=== PATIENT | female | born 1945 | race Hispanic/Latino ===

== ENCOUNTER 2017-10-30 19:17 | Emergency (ER) | payer OTHER ==
[~2017-10-30] VITALS: Ht 167.6 cm; Wt 93.0 kg
[~2017-10-30 19:17] MED LIST: AFEDITAB CR30 MG PO; COZAAR100 MG PO; DEXILANT60 MG PO; FAMOTIDINE10 MG; FAMOTIDINE20 MG PO; HYDROCHLOROTHIA25 MG PO; HYDROCODON-ACE1 EAC9 PO; KEFLEX500 MG PO; KLOR-CON 1010 MEQ PO; LINZESS PO; LOSARTAN POTASS25 MG PO; LYRICA75 MG PO; NIFEDIPINE ER30 M1 PO; NIFEDIPINE PO; OMEPRAZOLE40 MG PO; RESTORIL15 MG PO; ULTRACET TABLE1 EACH PO; ULTRAM50 MG PO
[2017-10-30] MEDS ORDERED: SODIUM CHLORIDE 0.9% 1000ML 1,000 ML IV SCH (19:45)
[2017-10-30] MEDS ORDERED: MORPHINE SULFATE 5 MG/ML VIAL IV ONE (19:45)
[2017-10-30] MEDS ORDERED: ACETAMINOPHEN 325 MG TAB PO ONE (19:45)
[2017-10-30] MEDS ORDERED: ONDANSETRON HCL INJ 2 MG/ML VIAL IV STA (19:45)
[2017-10-30] MEDS ORDERED: MORPHINE SULFATE 2 MG/ML SYR IV ONE (20:00)
[2017-10-30 20:07] LABS: BASOPHILS # (AUTO) 0.1 (0.0-0.1); BASOPHILS % 0.7 % (0.0-1.0); EOSINOPHILS # (AUTO) 0.2 (0.0-0.4); EOSINOPHILS % 2.2 % (0.0-6.0); HEMATOCRIT 36.1 % (34.2-44.1); HEMOGLOBIN 12.2 g/dL (12.0-16.0); LYMPHOCYTES # (AUTO) 2.4 (1.0-3.2); LYMPHOCYTES % 22.2 % (18.0-39.1); MEAN CORPUSCULAR HEMOGLOBIN 28.6 pg (28-32); MEAN CORPUSCULAR HGB CONC 33.8 g/dL (31-35); MEAN CORPUSCULAR VOLUME 84.5 fL (81-99); MONOCYTES % 9.3 % (4.4-11.3); NEUTROPHILS % 65.4 % (38.7-80.0); PLATELET COUNT 396 x10e3/uL (140-360); RED BLOOD COUNT 4.27 x10e6/uL (3.6-5.1); RED CELL DISTRIBUTION WIDTH 13.6 % (11.7-14.4)
[2017-10-30 20:17] LABS: INR 1.06
[2017-10-30 20:18] LABS: PARTIAL THROMBOPLASTIN TIME 31.1 seconds (23.8-35.5)
[2017-10-30 20:25] LABS: ALBUMIN 3.6 g/dL (3.5-5.0); ALBUMIN/GLOBULIN RATIO 0.9 (0.8-2.0); ANION GAP 11.4 mmol/L (8-16); CALCIUM 9.1 mg/dL (8.4-10.2); CREATININE, SERUM 0.97 mg/dL (0.57-1.11); POTASSIUM 3.4 mmol/L (3.5-5.1)
[2017-10-30 20:33] LABS: CREATINE KINASE MB 0.4 ng/mL (0.00-5.00)
--- NOTE | 2017-10-30 20:46 | Diagnostic Imaging Report ---
Examination: Single AP view of the chest. COMPARISON: None. INDICATION: Cough DISCUSSION: Lines/tubes: None. Lungs: Pulmonary venous congestion. No pneumonia. Pleura: There is no pleural effusion or pneumothorax. Heart and mediastinum: Prominent heart. Bones and soft tissues: No acute bony abnormalities. IMPRESSION: Pulmonary venous congestion. Signed by: Dr. Xavier Waldrop M.D. on 10/30/2017 8:42 PM
[2017-10-30 21:21] LABS: BILIRUBIN,URINE NEGATIVE (NEGATIVE); COLOR,URINE YELLOW (YELLOW); KETONES,URINE NEGATIVE (NEGATIVE); LEUKOCYTE ESTERASE ,URINE TRACE (NEGATIVE); NITRITE,URINE NEGATIVE (NEGATIVE); PROTEIN,URINE DIPSTICK NEGATIVE (NEGATIVE); URINE UROBILINOGEN 0.2 mg/dL (0.2 - 1)
[2017-10-30 21:22] LABS: CLARITY,URINE SL CLOUDY (CLEAR)
[2017-10-30 21:34] LABS: BACTERIA,URINE FEW /HPF; EPITHELIAL CELLS,URINE RARE /LPF; RBC,URINE 0-5 /HPF (0-5)
--- NOTE | 2017-10-30 21:36 | Diagnostic Imaging Report ---
Exam: Head CT without contrast History: Dizziness, fall Comparison studies: Multiple head CTs which date to 08/26/2014, most recent head CT of 04/03/2017 Technique: Axial images were obtained from the skull base to the vertex. Coronal and sagittal images reconstructed from the axial data. Intravenous contrast: None Findings: Scalp: No abnormalities. Bones: No fractures, blastic or lytic lesions. Brain sulci: Within normal limits for age. Ventricles: Mild nonspecific ventriculomegaly unchanged and may be compensatory related to volume loss. No acute hydrocephalus. Extra-axial spaces: No masses, no fluid collection. Parenchyma: No mass, acute hemorrhage or acute or chronic cortical vascular insults. A few subtle hypodensities in the supratentorial white matter are nonspecific but most compatible with chronic small vessel ischemic changes. Sellar/suprasellar region: No abnormalities. Craniocervical junction: Patent foramen magnum. No Chiari one malformation. Incidental findings: Atherosclerotic calcifications in the carotid siphons. IMPRESSION: No acute abnormalities. No changes from the previous head CT of 04/03/2017. Chronic findings: 1. Mild microvascular ischemic changes. 2. Stable mild ventriculomegaly. No acute hydrocephalus. Signed by: Dr. Alfred Dunham M.D. on 10/30/2017 9:32 PM
[2017-10-30 22:18] VITALS: BP 148/90
== END 2017-10-30 22:49 | disposition home or self-care (01) ==
LOC: ER 19:17
DX: R50.9 Fever, unspecified (principal); R51 Headache; B34.9 Viral infection, unspecified; N39.0 Urinary tract infection, site not specified
CPT/HCPCS: 36415; 70450; 71045; 80053; 81001; 82550; 82553; 84484; 85025; 85610; 85730; 87086; 87400; 93005; 99284; J2270; J2405; J7030

== ENCOUNTER 2018-10-18 13:28 | Inpatient (IN) | payer MEDICARE, OTHER ==
[~2018-10-18] VITALS: Ht 162.6 cm; Wt 92.6 kg
--- OUTSIDE RECORDS SUMMARY | 2018-10-18 13:32 | XMS REPORT ---
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 Allergies, Adverse Reactions, Alerts Allergy Name Allergy Type Status Severity Reaction(s) Onset Date Inactive Date Treating Clinician Comments No Known Allergies DA Active U 2014-12-25 00:00:00 Medications This patient has no known medications. Results Test Description Test Time Test Comments Text Results Atomic Results Result Comments CHEST SINGLE (NOT PORTABLE) [place] [address] Patient Name: ANTONIA MONTGOMERY V MR #: [id number] : 1945 Age/Sex: 72/F Req #: [id number] Adm Physician: Ordered by: CHEYENNE ROMANO MD Report #: [id number] Location: ER Room/Bed: Procedure: [id number] DX/CHEST SINGLE (NOT PORTABLE) Exam Date: Exam Time: REPORT STATUS: Signed Examination: Single AP view of the chest. COMPARISON: None. INDICATION: Cough DISCUSSION: Lines/tubes: None. Lungs: Pulmonary venous congestion. No pneumonia. Pleura: There is no pleural effusion or pneumothorax. Heart and mediastinum: Prominent heart. Bones and soft tissues: No acute bony abnormalities. IMPRESSION: Pulmonary venous congestion. Signed by: Dr. Geri Vinson M.D. on 10/30/2017 8:42 PM Dictated By: GERI VINSON MD 41 Transcribed By: MELLISSA on 10/30/172041 COPY TO: CHEYENNE ROMANO MD CT BRAIN WO [place] [address] Patient Name: ANTONIA MONTGOMERY V MR #: [id number] : 1945 Age/Sex: 72/F Req #: [id number] Adm Physician: Ordered by: CHEYENNE ROMANO MD Report #: [id number] Location: ER Room/Bed: Procedure: [id number] CT/CT BRAIN WO Exam Date: Exam Time: REPORT STATUS: Signed Exam: Head CT without contrast History: Dizziness, fall Comparison studies: Multiple head CTs which date to 08/26/2014, most recent head CT of 04/03/2017 Technique: Axial images were obtained from the skull base to the vertex. Coronal and sagittal images reconstructed from the axial data. Intravenous contrast: None Findings: Scalp: No abnormalities. Bones: No fractures, blastic or lytic lesions. Brain sulci: Within normal limits for age. Ventricles: Mild nonspecific ventriculomegaly unchanged and may be compensatory related to volume loss. No acute hydrocephalus. Extra-axial spaces: No masses, no fluid collection. Parenchyma: No mass, acute hemorrhage or acute or chronic cortical vascular insults. A few subtle hypodensities in the supratentorial white matter are nonspecific but most compatible with chronic small vessel ischemic changes. Sellar/suprasellar region: No abnormalities. Craniocervical junction: Patent foramen magnum. No Chiari one malformation. Incidental findings: Atherosclerotic calcifications in the carotid siphons. IMPRESSION: No acute abnormalities. No changes from the previous head CT of 04/03/2017. Chronic findings: 1. Mild microvascular ischemic changes. 2. Stable mild ventriculomegaly. No acute hydrocephalus. Signed by: Dr. Fabián Dunham M.D. on 10/30/2017 9:32 PM Dictated By: FABIÁN DUNHAM MD 31 Transcribed By: MELLISSA on 10/30/172131 COPY TO: CHEYENNE ROMANO MD
--- OUTSIDE RECORDS SUMMARY | 2018-10-18 13:32 | XMS REPORT | Continuity of Care Document ---
Author Author [facility] Interface Address Unknown Phone Unavailable Problems Problem Status Onset Date Classification Date Reported Comments Source Malaise Active Problem 10/31/2017 [facility] Myalgia Active Problem 10/31/2017 [facility] Weakness Active Problem 10/31/2017 [facility] Medications Medication Details Route Status Patient Instructions Ordering Provider Order Date Source Famotidine 20 Mg Tab, 20 Mg Oral Daily Active 04/03/2017 [facility] Linzess 1 Tab, 90 Mcg Oral Daily Active 04/03/2017 [facility] Losartan Potassium 25 Mg Tablet, 50 Mg Oral Daily Active 04/03/2017 [facility] Nifedipine , Oral Daily Active 04/03/2017 [facility] Potassium Chloride (Klor-Con 10) 10 Meq Tablet.er, 10 Meq Oral Daily Active 04/03/2017 [facility] Famotidine 10 Mg Tablet, Active 06/23/2016 [facility] Hydrochlorothiazide 25 Mg Tablet, 25 Mg Oral Daily Active 06/23/2016 [facility] Dexlansoprazole (Dexilant) 60 Mg Dominic., 60 Mg Oral Daily Active 05/17/2016 [facility] Temazepam (Restoril) 15 Mg Capsule, 15 Mg Oral Daily Active 05/17/2016 [facility] Cephalexin Monohydrate (Keflex) 500 Mg Capsule, 500 Mg Oral Three Times A Day Active 07/08/2014 [facility] Hydrocodone Bit/Acetaminophen (Hydrocodon-Acetaminophn 10-325) 1 Each Tablet, 325 Mg Oral As Needed Active 07/08/2014 [facility] Losartan Potassium (Cozaar) 100 Mg Tablet, 100 Mg Oral Daily Active 07/08/2014 [facility] Nifedipine (Afeditab Cr) 30 Mg Tablet.er, 30 Mg Oral Daily Active 07/08/2014 [facility] Temazepam (Restoril) 15 Mg Capsule, 15 Mg Oral Qhs Active 07/08/2014 [facility] Tramadol Hcl/Acetaminophen (Ultracet Tablet) 1 Each Tablet, 325 Mg Oral As Needed Active 07/08/2014 [facility] Nifedipine (Nifedipine Er) 30 Mg Tab.er.24 Daily Active [facility] Omeprazole 40 Mg Capsule.dr Daily Active [facility] Pregabalin (Lyrica) 75 Mg Cap Three Times A Day Active [facility] Tramadol Hcl (Ultram) 50 Mg Tablet As Needed Active [facility] Allergies, Adverse Reactions, Alerts Substance Category Reaction Severity Reaction type Status Date Reported Comments Source Immunizations Immunization Date Given Site Status Last Updated Comments Source Results Order Name Results Value Reference Range Date Interpretation Comments Source Automated urine sediment leukocyte count by microscopy (number/high power field) Automated urine sediment leukocyte count by microscopy (number/high power field) null 0 - 5 10/30/2017 [facility] Bacteria detection in urine sediment by light microscopy Bacteria detection in urine sediment by light microscopy FEW NONE 10/30/2017 [facility] Epithelial cells detection in urine sediment by light microscopy Epithelial cells detection in urine sediment by light microscopy RARE NONE 10/30/2017 [facility] Erythrocytes detection in urine sediment by light microscopy Erythrocytes detection in urine sediment by light microscopy null 0 - 5 10/30/2017 [facility] Influenza virus A and B antigen identification by immunofluorescence Influenza virus A and B antigen identification by immunofluorescence NEGATIVE NEGATIVE 10/30/2017 [facility] Specific gravity of Urine by Test strip Specific gravity of Urine by Test strip 1.015 1.010 - 1.025 10/30/2017 [facility] Urine clarity Urine clarity SL CLOUDY CLEAR 10/30/2017 [facility] Urine color determination Urine color determination YELLOW YELLOW 10/30/2017 [facility] Urine erythrocytes detection Urine erythrocytes detection 1+ NEGATIVE 10/30/2017 [facility] Urine glucose detection Urine glucose detection NEGATIVE NEGATIVE 10/30/2017 [facility] Urine ketones detection by automated test strip Urine ketones detection by automated test strip NEGATIVE NEGATIVE 10/30/2017 [facility] Urine leukocyte esterase detection by dipstick Urine leukocyte esterase detection by dipstick TRACE NEGATIVE 10/30/2017 [facility] Urine nitrite detection Urine nitrite detection NEGATIVE NEGATIVE 10/30/2017 [facility] Urine pH measurement by automated test strip Urine pH measurement by automated test strip 7 5 - 7 10/30/2017 [facility] Urine protein measurement by test strip (mass/volume) Urine protein measurement by test strip (mass/volume) NEGATIVE NEGATIVE 10/30/2017 [facility] Urine total bilirubin measurement (mass/volume) Urine total bilirubin measurement (mass/volume) NEGATIVE NEGATIVE 10/30/2017 [facility] Urine urobilinogen measurement by test strip (mass/volume) Urine urobilinogen measurement by test strip (mass/volume) 0.2 0.2 - 1 10/30/2017 [facility] Activated partial thromboplastin time (aPTT) in platelet poor plasma bycoagulation assay Activated partial thromboplastin time (aPTT) in platelet poor plasma bycoagulation assay 31.1 23.8 - 35.5 10/30/2017 [facility] Automated blood basophil count (count/volume) Automated blood basophil count (count/volume) 0.1 0.0 - 0.1 10/30/2017 [facility] Automated blood basophil count as percentage of total leukocytes Automated blood basophil count as percentage of total leukocytes 0.7 0.0 - 1.0 10/30/2017 [facility] Automated blood eosinophil count Automated blood eosinophil count 0.2 0.0 - 0.4 10/30/2017 [facility] Automated blood eosinophil count as percentage of total leukocytes Automated blood eosinophil count as percentage of total leukocytes 2.2 0.0 - 6.0 10/30/2017 [facility] Automated blood hematocrit (volume fraction) Automated blood hematocrit (volume fraction) 36.1 34.2 - 44.1 10/30/2017 [facility] Automated blood lymphocyte count as percentage ot total leukocytes Automated blood lymphocyte count as percentage ot total leukocytes 22.2 18.0 - 39.1 10/30/2017 [facility] Automated blood monocyte count as percentage of total leukocytes Automated blood monocyte count as percentage of total leukocytes 9.3 4.4 - 11.3 10/30/2017 [facility] Automated blood neutrophil count Automated blood neutrophil count 7.0 2.1 - 6.9 10/30/2017 [facility] Automated blood platelet count (count/volume) Automated blood platelet count (count/volume) 396 140 - 360 10/30/2017 [facility] Automated blood segmented neutrophil count as percentage of total leukocytes Automated blood segmented neutrophil count as percentage of total leukocytes 65.4 38.7 - 80.0 10/30/2017 [facility] Automated erythrocyte mean corpuscular hemoglobin (mass per erythrocyte) Automated erythrocyte mean corpuscular hemoglobin (mass per erythrocyte) 28.6 28 - 32 10/30/2017 [facility] Automated erythrocyte mean corpuscular hemoglobin concentration measurement (mass/volume) Automated erythrocyte mean corpuscular hemoglobin concentration measurement (mass/volume) 33.8 31 - 35 10/30/2017 [facility] Automated erythrocyte mean corpuscular volume Automated erythrocyte mean corpuscular volume 84.5 81 - 99 10/30/2017 [facility] Blood erythrocytes automated count (number/volume) Blood erythrocytes automated count (number/volume) 4.27 3.6 - 5.1 10/30/2017 [facility] Blood hemoglobin measurement (moles/volume) Blood hemoglobin measurement (moles/volume) 12.2 12.0 - 16.0 10/30/2017 [facility] Blood leukocytes automated count (number/volume) Blood leukocytes automated count (number/volume) 10.71 4.8 - 10.8 10/30/2017 [facility] Blood lymphocytes count (number/volume) Blood lymphocytes count (number/volume) 2.4 1.0 - 3.2 10/30/2017 [facility] Blood monocytes automated count (number/volume) Blood monocytes automated count (number/volume) 1.0 0.2 - 0.8 10/30/2017 [facility] Estimated glomerular filtration rate (GFR) determination Estimated glomerular filtration rate (GFR) determination 57 60 10/30/2017 [facility] Glucose measurement Glucose measurement 106 74 - 118 10/30/2017 [facility] INR in Platelet poor plasma by Coagulation assay INR in Platelet poor plasma by Coagulation assay 1.06 10/30/2017 [facility] Plasma globulin measurement (mass/volume) Plasma globulin measurement (mass/volume) 4.1 2.3 - 3.5 10/30/2017 [facility] Prothrombin time (PT) in platelet poor plasma by coagulation assay Prothrombin time (PT) in platelet poor plasma by coagulation assay 13.0 11.9 - 14.5 10/30/2017 [facility] Serum or plasma alanine aminotransferase measurement (enzymatic activity/volume) Serum or plasma alanine aminotransferase measurement (enzymatic activity/volume) 12 0 - 55 10/30/2017 [facility] Serum or plasma albumin measurement (mass/volume) Serum or plasma albumin measurement (mass/volume) 3.6 3.5 - 5.0 10/30/2017 [facility] Serum or plasma albumin/globulin mass ratio Serum or plasma albumin/globulin mass ratio 0.9 0.8 - 2.0 10/30/2017 [facility] Serum or plasma alkaline phosphatase measurement (enzymatic activity/volume) Serum or plasma alkaline phosphatase measurement (enzymatic activity/volume) 86 40 - 150 10/30/2017 [facility] Serum or plasma anion gap Serum or plasma anion gap 11.4 8 - 16 10/30/2017 [facility] Serum or plasma calcium measurement (mass/volume) Serum or plasma calcium measurement (mass/volume) 9.1 8.4 - 10.2 10/30/2017 [facility] Serum or plasma carbon dioxide, total measurement (moles/volume) Serum or plasma carbon dioxide, total measurement (moles/volume) 30 22 - 29 10/30/2017 [facility] Serum or plasma chloride measurement (moles/volume) Serum or plasma chloride measurement (moles/volume) 100 98 - 107 10/30/2017 [facility] Serum or plasma creatine kinase MB measurement (mass/volume) Serum or plasma creatine kinase MB measurement (mass/volume) 0.40 0.00 - 5.00 10/30/2017 [facility] Serum or plasma creatine kinase measurement (enzymatic activity/volume) Serum or plasma creatine kinase measurement (enzymatic activity/volume) 87 29 - 168 10/30/2017 [facility] Serum or plasma creatinine measurement (mass/volume) Serum or plasma creatinine measurement (mass/volume) 0.97 0.57 - 1.11 10/30/2017 [facility] Serum or plasma potassium measurement (moles/volume) Serum or plasma potassium measurement (moles/volume) 3.4 3.5 - 5.1 10/30/2017 [facility] Serum or plasma protein measurement (mass/volume) Serum or plasma protein measurement (mass/volume) 7.7 6.5 - 8.1 10/30/2017 [facility] Serum or plasma sodium measurement (moles/volume) Serum or plasma sodium measurement (moles/volume) 138 136 - 145 10/30/2017 [facility] Serum or plasma total bilirubin measurement (mass/volume) Serum or plasma total bilirubin measurement (mass/volume) 0.3 0.2 - 1.2 10/30/2017 [facility] Serum or plasma troponin i.cardiac measurement by detection limit <=0.01 NG/ml (mass/volume) Serum or plasma troponin i.cardiac measurement by detection limit <=0.01 NG/ml (mass/volume) 0.003 0 - 0.300 10/30/2017 [facility] Serum or plasma urea nitrogen measurement (mass/volume) Serum or plasma urea nitrogen measurement (mass/volume) 15 7 - 26 10/30/2017 [facility] Serum or plasma urea nitrogen/creatinine mass ratio Serum or plasma urea nitrogen/creatinine mass ratio 15 6 - 25 10/30/2017 [facility] Red Cell Distribution Width 13.6 11.7 - 14.4 10/30/2017 [facility] IM GRANULOCYTES % 0.2 0.0 - 1.0 10/30/2017 [facility] Absolute Immature Granulocyte (auto 0.02 0 - 0.1 10/30/2017 [facility] Aspartate Amino Transf (AST/SGOT) 13 5 - 34 10/30/2017 [facility] Mucus detection in urine sediment by light microscopy Mucus detection in urine sediment by light microscopy FEW RARE 07/18/2017 [facility] Serum or plasma amylase measurement (enzymatic activity/volume) Serum or plasma amylase measurement (enzymatic activity/volume) 53 25 - 125 04/25/2017 [facility] Serum or plasma lipase measurement (enzymatic activity/volume) Serum or plasma lipase measurement (enzymatic activity/volume) 9 8 - 78 04/25/2017 [facility] Blood culture Blood culture NO GROWTH AFTER 5 DAYS, FINAL REPORT 04/25/2017 [facility] Vital Signs Vital Sign Value Date Comments Source Encounters Location Location Details Encounter Type Encounter Number Reason For Visit Attending Provider ADM Date DC Date Status Source Departed Emergency Room [id number] REZA CUELLAR MD 01/16/2017 01/16/2017 [facility] Departed Emergency Room [id number] IMELDA CROSS MD 04/03/2017 04/03/2017 [facility] Departed Emergency Room [id number] LAQUITA CRAIG MD 04/25/2017 04/25/2017 [facility] Departed Emergency Room [id number] LAQUITA CRAIG MD 07/18/2017 07/18/2017 [facility] Departed Emergency Room [id number] CHEYENNE ROMANO MD 10/30/2017 10/30/2017 [facility] Procedures Procedure Code Date Perfomer Comments Source Computed tomography of brain without radiopaque contrast [id number] 10/30/2017 JUAN ANTONIO [facility] X-ray of chest, single view [id number] 10/30/2017 [facility] X-ray of chest, two views [id number] 04/25/2017 JEANETH [facility] Computed tomography of brain without radiopaque contrast [id number] 04/03/2017 [facility] Computed tomography of brain without radiopaque contrast [id number] 01/16/2017 [facility] Computed tomography of cervical spine without contrast [id number] 01/16/2017 [facility]
[2018-10-18] MEDS ORDERED: IBUPROFEN 400 MG TAB ONE (14:27)
[2018-10-18] MEDS ORDERED: IBUPROFEN 400 MG TAB PO ONE (14:45)
--- NOTE | 2018-10-18 16:04 | Diagnostic Imaging Report ---
Frontal and lateral views of the chest. HISTORY: Pain, weakness, confusion COMPARISON: None available. DISCUSSION: Soft tissue attenuation partially limits sensitivity of the exam. Lungs: Low lung volumes result in bibasilar vascular crowding, accentuation of the pulmonary interstitial markings, central pulmonary vasculature, and the cardiac silhouette. Allowing for these limitations, the findings are as follows: Even when allowing for the low lung volumes, the interstitial lung markings appear diffusely prominent. Pleura: No pleural effusion or pneumothorax. Heart and mediastinum: The cardiac silhouette and central pulmonary vasculature appear enlarged. Bones and soft tissues: Multilevel moderate to severe degenerative disc changes. IMPRESSION: Markedly low lung volumes, but the cardiac size, central pulmonary vascular, and interstitial lung markings appear diffusely increased. Consider volume overload with pulmonary vascular congestion and interstitial edema. In the absence of volume overload, multifocal/atypical pneumonia may be an alternative consideration. Signed by: Dr. Jose Rudolph D.O., M.M.M. on 10/18/2018 4:01 PM
[2018-10-18] MEDS ORDERED: CEFTRIAXONE SOD 1 GRAM/0.9% SOD CHL 50ML BAG IV SCH (16:30)
[2018-10-18] MEDS ORDERED: ASPIRIN 81 MG CHEW TAB PO ONE (16:30)
[2018-10-18] MEDS ORDERED: AZITHROMYCIN 500MG/NS 250 ML 250 ML IV ONE (16:30)
[2018-10-18] MEDS ORDERED: AZITHROMYCIN 500MG/SOD CHL 0.9% 250ML BAG IV SCH (16:30)
[2018-10-18] MEDS ORDERED: LEVOFLOXACIN 750MG/D5W 150ML IV SCH (16:30)
[2018-10-18] MEDS ORDERED: AZITHROMYCIN 500MG/NS 250 ML 250 ML IV SCH ×2 (16:35→17:00)
[2018-10-18 17:11] LABS: BASOPHILS # (AUTO) 0.1 (0.0-0.1); BASOPHILS % 0.5 % (0.0-1.0); EOSINOPHILS # (AUTO) 0.1 (0.0-0.4); EOSINOPHILS % 0.8 % (0.0-6.0); HEMATOCRIT 36.6 % (34.2-44.1); HEMOGLOBIN 12.7 g/dL (12.0-16.0); LYMPHOCYTES # (AUTO) 1.4 (1.0-3.2); LYMPHOCYTES % 9.9 % (18.0-39.1); MEAN CORPUSCULAR HEMOGLOBIN 28.2 pg (28-32); MEAN CORPUSCULAR HGB CONC 34.7 g/dL (31-35); MEAN CORPUSCULAR VOLUME 81.2 fL (81-99); MONOCYTES # (AUTO) 0.5 (0.2-0.8); MONOCYTES % 3.6 % (4.4-11.3); NEUTROPHILS # (AUTO) 12.2 (2.1-6.9); NEUTROPHILS % 84.9 % (38.7-80.0); PLATELET COUNT 426 x10e3/uL (140-360); RED BLOOD COUNT 4.51 x10e6/uL (3.6-5.1); RED CELL DISTRIBUTION WIDTH 13.6 % (11.7-14.4)
[2018-10-18 17:51] LABS: CREATINE KINASE 73 IU/L (29-168)
[2018-10-18] MEDS ORDERED: CEFTRIAXONE SOD 1 GM VIAL ONE (17:52)
[2018-10-18 17:54] LABS: ALANINE AMINOTRANSFERASE 13 IU/L (0-55); ALBUMIN 3.9 g/dL (3.5-5.0); ALBUMIN/GLOBULIN RATIO 1.2 (0.8-2.0); ALKALINE PHOSPHATASE 94 IU/L (40-150); ANION GAP 14.4 mmol/L (8-16); BLOOD UREA NITROGEN 12 mg/dL (7-26); BUN/CREATININE RATIO 13 (6-25); CALCIUM 9.4 mg/dL (8.4-10.2); CARBON DIOXIDE 27 mmol/L (22-29); CHLORIDE 98 mmol/L (98-107); CREATININE, SERUM 0.89 mg/dL (0.57-1.11); EST GLOMERULAR FILTRATION RATE > 60 ML/MIN (60-); GLUCOSE 106 mg/dL (74-118); POTASSIUM 3.4 mmol/L (3.5-5.1); SODIUM 136 mmol/L (136-145)
[2018-10-18] MEDS: CEFTRIAXONE SOD 1 GM/NS 50 ML 50 ML IV SCH (17:57)
[2018-10-18] MEDS: AZITHROMYCIN 500MG/NS 250 ML 250 ML IV SCH (17:57)
[2018-10-18] MEDS ORDERED: LEVOFLOXACIN 750MG/D5W 150ML 150 ML IV SCH (18:30)
[2018-10-18 20:21] VITALS: BP 135/82
[2018-10-18] MEDS ORDERED: SODIUM CHLORIDE 0.9% 250ML 250 ML ONE (20:23)
[2018-10-18] MEDS: LEVOFLOXACIN 750MG/D5W 150ML 150 ML IV SCH (22:26)
[2018-10-19] VITALS (8 sets, daily range): BP systolic 126–163; BP diastolic 67–82
[2018-10-19] MEDS: ALBUTEROL/IPRATROPIUM 3 ML NEB NEB SCH ×4 (00:35→20:20)
[2018-10-19] MEDS ORDERED: HYDRALAZINE HCL 20 MG/ML VIAL IV PRN (08:30)
[2018-10-19] MEDS ORDERED: ACETAMINOPHEN 325 MG TAB PO PRN (08:30)
[2018-10-19] MEDS ORDERED: ONDANSETRON HCL INJ 2MG/ML 2ML 2 MG/ML VIAL IV PRN (08:30)
[2018-10-19] MEDS ORDERED: BISACODYL 5 MG TAB EC PO PRN (08:45)
[2018-10-19] MEDS ORDERED: POTASSIUM CHLORIDE 20 MEQ TAB CR PO NR ×2 (09:00→09:30)
[2018-10-19] MEDS ORDERED: FUROSEMIDE INJ 10 MG/ML 4 ML VIAL IV NR (09:15)
[2018-10-19 09:30] LABS: CREATINE KINASE 55 IU/L (29-168)
[2018-10-19] MEDS: NIFEDIPINE CR 30 MG TAB PO SCH (09:34)
[2018-10-19] MEDS: PANTOPRAZOLE SOD 40 MG TABEC PO SCH (09:35)
[2018-10-19] MEDS: HYDROCODONE/APAP 5MG-325MG TAB PO PRN ×3 (09:35→23:20)
[2018-10-19] MEDS: LORATADINE 10 MG TAB PO SCH (09:35)
[2018-10-19] MEDS: FAMOTIDINE 20 MG TAB PO SCH ×2 (09:35→15:33)
[2018-10-19] MEDS: POLYETHYLENE GLYCOL 3350 17 GM PACK PO SCH (09:35)
[2018-10-19] MEDS: DOCUSATE SODIUM 100 MG CAP PO SCH ×2 (09:35→15:33)
[2018-10-19] MEDS: GUAIFENESIN 600MG/DEXTROMETHORPHAN 30MG TABSR PO SCH ×2 (09:35→15:33)
[2018-10-19] MEDS: FLUTICASONE PROPIONATE NASAL SPRAY NS SCH ×2 (09:35→15:33)
[2018-10-19] MEDS: LIDOCAINE 5% PATCH TP SCH (09:35)
--- NOTE | 2018-10-19 13:45 | Diagnostic Imaging Report ---
Exam: Right and left knee 3 views each History: Knee pain Comparison: None. Findings: No fracture or malalignment. Tricompartmental knee degenerative arthrosis with joint space narrowing and osteophytosis. Extensor mechanisms enthesophytes. Non aggressive 1.2 cm lucent lesion with sclerotic border in the right femoral diaphysis seen only on the lateral radiograph. Impression: No acute osseous abnormality Tricompartmental knee degenerative arthrosis bilaterally, worse on the left. Signed by: Dr. Xavier Waldrop M.D. on 10/19/2018 1:42 PM
[2018-10-19] MEDS: CEFTRIAXONE SOD 1 GM/NS 50 ML 50 ML IV SCH (15:33)
[2018-10-19 16:50] LABS: CREATINE KINASE 56 IU/L (29-168)
[2018-10-19] MEDS: AZITHROMYCIN 500MG/NS 250 ML 250 ML IV SCH (17:20)
[2018-10-19] MEDS: LEVOFLOXACIN 750MG/D5W 150ML 150 ML IV SCH (20:38)
[2018-10-19] MEDS: PREGABALIN 75 MG CAP PO SCH (20:38)
[2018-10-20] VITALS (8 sets, daily range): BP systolic 120–160; BP diastolic 58–85
[2018-10-20 05:14] LABS: BASOPHILS # (AUTO) 0.1 (0.0-0.1); BASOPHILS % 0.6 % (0.0-1.0); EOSINOPHILS # (AUTO) 0.1 (0.0-0.4); EOSINOPHILS % 0.5 % (0.0-6.0); HEMATOCRIT 35.3 % (34.2-44.1); HEMOGLOBIN 12.4 g/dL (12.0-16.0); LYMPHOCYTES # (AUTO) 1.9 (1.0-3.2); MEAN CORPUSCULAR HEMOGLOBIN 28.4 pg (28-32); MEAN CORPUSCULAR HGB CONC 35.1 g/dL (31-35); MEAN CORPUSCULAR VOLUME 80.8 fL (81-99); MONOCYTES # (AUTO) 0.9 (0.2-0.8); MONOCYTES % 8.9 % (4.4-11.3); NEUTROPHILS # (AUTO) 7.1 (2.1-6.9); NEUTROPHILS % 70.6 % (38.7-80.0); PLATELET COUNT 365 x10e3/uL (140-360); RED BLOOD COUNT 4.37 x10e6/uL (3.6-5.1); RED CELL DISTRIBUTION WIDTH 13.7 % (11.7-14.4)
[2018-10-20 05:36] LABS: ANION GAP 16.2 mmol/L (8-16); BLOOD UREA NITROGEN 15 mg/dL (7-26); BUN/CREATININE RATIO 17 (6-25); CALCIUM 9.5 mg/dL (8.4-10.2); CARBON DIOXIDE 24 mmol/L (22-29); CHLORIDE 103 mmol/L (98-107); CREATININE, SERUM 0.88 mg/dL (0.57-1.11); EST GLOMERULAR FILTRATION RATE > 60 ML/MIN (60-); GLUCOSE 125 mg/dL (74-118); MAGNESIUM 2.4 MG/DL (1.3-2.1); POTASSIUM 3.2 mmol/L (3.5-5.1); SODIUM 140 mmol/L (136-145)
[2018-10-20 05:58] LABS: FREE T4 (FREE THYROXINE) 1.13 ng/dL (0.9-1.8); THYROID STIMULATING HORMONE 0.419 uIU/mL (0.350-4.940)
[2018-10-20 06:10] LABS: ERYTHROCYTE SEDIMENTATION RATE 46 mm/hr (0-20)
[2018-10-20] MEDS: ALBUTEROL/IPRATROPIUM 3 ML NEB NEB SCH ×4 (07:00→23:34)
[2018-10-20] MEDS ORDERED: POTASSIUM CHLORIDE 20 MEQ TAB CR PO STA (07:48)
[2018-10-20] MEDS: HYDROCODONE/APAP 5MG-325MG TAB PO PRN ×2 (09:32→18:13)
[2018-10-20] MEDS: FAMOTIDINE 20 MG TAB PO SCH ×2 (09:45→18:13)
[2018-10-20] MEDS: DOCUSATE SODIUM 100 MG CAP PO SCH ×2 (09:45→18:13)
[2018-10-20] MEDS: LORATADINE 10 MG TAB PO SCH (09:45)
[2018-10-20] MEDS: GUAIFENESIN 600MG/DEXTROMETHORPHAN 30MG TABSR PO SCH ×2 (09:45→18:13)
[2018-10-20] MEDS: PREGABALIN 75 MG CAP PO SCH ×3 (09:45→21:00)
[2018-10-20] MEDS: POLYETHYLENE GLYCOL 3350 17 GM PACK PO SCH (09:45)
[2018-10-20] MEDS: PANTOPRAZOLE SOD 40 MG TABEC PO SCH (09:45)
[2018-10-20] MEDS: FLUTICASONE PROPIONATE NASAL SPRAY NS SCH ×2 (09:45→18:13)
[2018-10-20] MEDS: NIFEDIPINE CR 30 MG TAB PO SCH (09:46)
[2018-10-20] MEDS: LIDOCAINE 5% PATCH TP SCH (09:46)
[2018-10-20] MEDS ORDERED: METHYLPREDNISOLONE ACETATE 40 MG/ML VIAL INJ ONE ×2 (14:15→14:30)
[2018-10-20] MEDS ORDERED: LIDOCAINE HCL 2% LOCAL INJ 5 ML SDV VIAL INJ ONE (14:30)
[2018-10-20] MEDS: AZITHROMYCIN 500MG/NS 250 ML 250 ML IV SCH (18:14)
[2018-10-20] MEDS: CEFTRIAXONE SOD 1 GM/NS 50 ML 50 ML IV SCH (18:14)
--- NOTE | 2018-10-20 22:30 | Diagnostic Imaging Report ---
CHEST SINGLE (PORTABLE), 10/20/2018 9:00 PM Technique: CHEST SINGLE (PORTABLE) Comparison: 10/18/2018 Clinical history: Pneumonia Findings: See Impression Impression: Limited by portable technique and soft tissue attenuation 1. Stable prominent cardiac silhouette and tortuous aorta. 2. Mild bibasilar opacity, possibly due to atelectasis/vascular crowding or infection. Recommend upright PA and lateral when feasible. 3. No effusion or pneumothorax. Signed by: Dr Twyla Mckinley MD on 10/20/2018 10:27 PM
[2018-10-21] MEDS: ALBUTEROL/IPRATROPIUM 3 ML NEB NEB SCH ×2 (04:17→07:02)
[2018-10-21 04:30] VITALS: BP 130/75
[2018-10-21] MEDS ORDERED: MUCINEX DM ER1 EACH PO (07:05)
[2018-10-21] MEDS ORDERED: Lidocaine Patch TP (07:05)
[2018-10-21] MEDS ORDERED: LORATADINE10 MG PO (07:05)
[2018-10-21] MEDS ORDERED: Fluticasone Propionate NS (07:05)
[2018-10-21] MEDS ORDERED: CEFTIN PO (07:05)
[2018-10-21] MEDS ORDERED: ZITHROMAX500 MG PO (07:05)
[2018-10-21] MEDS: HYDROCODONE/APAP 5MG-325MG TAB PO PRN (07:44)
[2018-10-21] MEDS: LORATADINE 10 MG TAB PO SCH (07:49)
[2018-10-21] MEDS: DOCUSATE SODIUM 100 MG CAP PO SCH (07:49)
[2018-10-21] MEDS: GUAIFENESIN 600MG/DEXTROMETHORPHAN 30MG TABSR PO SCH (07:49)
[2018-10-21] MEDS: FAMOTIDINE 20 MG TAB PO SCH (07:49)
[2018-10-21] MEDS: PANTOPRAZOLE SOD 40 MG TABEC PO SCH (07:49)
[2018-10-21] MEDS: PREGABALIN 75 MG CAP PO SCH (07:49)
[2018-10-21] MEDS: POLYETHYLENE GLYCOL 3350 17 GM PACK PO SCH (07:50)
[2018-10-21] MEDS: LIDOCAINE 5% PATCH TP SCH (07:50)
[2018-10-21 08:00] VITALS: BP 135/77
[2018-10-21 09:00] LABS: BASOPHILS % 0.1 % (0.0-1.0); HEMATOCRIT 37.5 % (34.2-44.1); HEMOGLOBIN 12.5 g/dL (12.0-16.0); LYMPHOCYTES # (AUTO) 1.4 (1.0-3.2); LYMPHOCYTES % 9.3 % (18.0-39.1); MEAN CORPUSCULAR HEMOGLOBIN 27.8 pg (28-32); MEAN CORPUSCULAR HGB CONC 33.3 g/dL (31-35); MEAN CORPUSCULAR VOLUME 83.3 fL (81-99); MONOCYTES # (AUTO) 0.7 (0.2-0.8); MONOCYTES % 4.2 % (4.4-11.3); NEUTROPHILS # (AUTO) 13.4 (2.1-6.9); NEUTROPHILS % 85.8 % (38.7-80.0); PLATELET COUNT 378 x10e3/uL (140-360); RED CELL DISTRIBUTION WIDTH 13.9 % (11.7-14.4)
[2018-10-21 09:19] LABS: ANION GAP 14.6 mmol/L (8-16); BLOOD UREA NITROGEN 21 mg/dL (7-26); BUN/CREATININE RATIO 24 (6-25); CALCIUM 9.7 mg/dL (8.4-10.2); CARBON DIOXIDE 22 mmol/L (22-29); CHLORIDE 107 mmol/L (98-107); CREATININE, SERUM 0.86 mg/dL (0.57-1.11); EST GLOMERULAR FILTRATION RATE > 60 ML/MIN (60-); GLUCOSE 161 mg/dL (74-118); MAGNESIUM 2.9 MG/DL (1.3-2.1); POTASSIUM 3.6 mmol/L (3.5-5.1); SODIUM 140 mmol/L (136-145)
[2018-10-21] MEDS: FLUTICASONE PROPIONATE NASAL SPRAY NS SCH (09:41)
[2018-10-21] MEDS: NIFEDIPINE CR 30 MG TAB PO SCH (09:41)
--- NOTE | 2018-10-22 08:06 | Consultation ---
DATE OF CONSULTATION: October 20, 2018 CHIEF COMPLAINT: Bilateral knee pain. HISTORY OF PRESENT ILLNESS: This patient is a pleasant female who complains of bilateral knee pain for over 2 years. She states that it has gotten progressively worse over the last few months. She states that she has difficulty walking because of the pain. She states that she has to use a walker at times. She states the pain is fairly constant and is a dull achy pain. She denies any numbness or tingling in either lower extremity. She localizes the pain to the medial aspect of both knees, she states the left knee is worse. PAST MEDICAL HISTORY: See H and P. SOCIAL HISTORY: Patient denies smoking or drinking. REVIEW OF SYSTEMS: Negative other than bilateral knee pain. PHYSICAL EXAMINATION GENERAL: This is a well-nourished morbidly obese female who is in no apparent distress. She is awake, alert, and oriented appropriately. EXTREMITIES: Gross inspection of both knees shows mild chronic swelling in both knees and is otherwise normal. She has mild varus alignment of both knees. Range of motion in both knees is roughly 0 degrees to 120 degrees of flexion in the left knee. Both knees are grossly stable. The dictation service was no longer working. The remainder of the dictation was written in the chart. Dictated by: Noman Holland PA-C Job#: [id number] LPA MTDD
--- NOTE | 2018-10-24 04:39 | Discharge Summary ---
ADMISSION DIAGNOSES 1. Community-acquired pneumonia, present on admission. 2. Hypertension. 3. Obesity. 4. Thrombocytosis. 5. Constipation. 6. Bilateral knee pain. 7. Hypokalemia. DISCHARGE DIAGNOSES 1. Community-acquired pneumonia, present on admission. 2. Hypertension. 3. Obesity. 4. Thrombocytosis. 5. Constipation. 6. Bilateral knee pain. 7. Hypokalemia. 8. Arthritis. HISTORY: GERD, hypertension, chronic pain. SURGICAL HISTORY: Right foot surgery, bilateral hand surgery, cholecystectomy. FAMILY HISTORY: Noncontributory. SOCIAL HISTORY: Noncontributory. HOSPITAL COURSE: A 73-year-old female complains of dry cough for months. She denies fever or sick contacts. She has associated shortness of breath, subjective chills and nasal congestion. She says her grandson finally made her come to the ER. She also complains of worsening bilateral knee pain. Pain is a constant ache, worse with ambulation. Pain is improved with Lyrica and tramadol. She fell a while back, but could not tell me exactly when. On admission, the patient was started on Rocephin, Zithromax, Mucinex, and nebs. Flu was negative. Chest x-ray showed markedly low lung volumes, central pulmonary vascular and interstitial lung markings appear diffusely increased. Consider volume overload with pulmonary vascular congestion and interstitial edema. In the absence of volume overload, multifocal/atypical pneumonia may be an alternative consideration. Patient had an echo with an EF of 50% to 55%. EKG showed sinus tach of 102. She had an x-ray of bilateral knees that showed no acute osseous abnormality. Tricompartmental knee degenerative arthrosis bilaterally, worse on the left. Ortho was consulted who gave the patient a steroid injection to both knees. Prior to discharge, the patient had another chest x-ray that showed no effusion or pneumothorax, mild bibasilar opacity, stable prominent cardiac silhouette. Blood cultures were negative. Patient is feeling much better after 1 or 2 days of antibiotics. She is no longer coughing. Her knees feel better after the steroid injection. She will follow up with primary care in 1-2 weeks and ortho as needed for additional steroid injections. She will discharge home with Zithromax, Ceftin, Flonase, Mucinex, lidocaine patch for each knee, and Claritin. Patient understands discharge instructions and agrees to plan. Vital signs stable. Patient afebrile. DICTATED BY VIVIENNE TARIQ, NICOLLE ADAN ALLRED MD Job#: [id number]
== END 2018-10-21 11:44 | disposition home or self-care (01) | DRG 195 ==
LOC: ER 13:28 → ERHOLD 17:24 → MED/SURG2 20:06 → OBSVTOIN 10-20 11:20
PROVIDERS: ADMIT Internal Medicine; ATTEND Internal Medicine
DX: J18.9 Pneumonia, unspecified organism (principal); I10 Essential (primary) hypertension; E66.9 Obesity, unspecified; Z68.35 Body mass index [BMI] 35.0-35.9, adult; D47.3 Essential (hemorrhagic) thrombocythemia; K59.00 Constipation, unspecified; M17.0 Bilateral primary osteoarthritis of knee; E87.6 Hypokalemia; R09.02 Hypoxemia; K21.9 Gastro-esophageal reflux disease without esophagitis
CPT/HCPCS: 36415; 71045; 71046; 80048; 80053; 82550; 82553; 83735; 83880; 84439; 84443; 84484; 85025; 85651; 86140; 87040; 87400; 93306; 94640; 97139; 99284; G0378; J0456; J0696; J1030; J1940; J2001; J7050

== ENCOUNTER 2018-12-26 11:04 | Emergency (ER) | payer OTHER ==
[~2018-12-26] VITALS: Ht 162.6 cm; Wt 92.5 kg
[~2018-12-26 11:04] MED LIST changes: +CEFTIN PO; +Fluticasone Propionate NS; +LORATADINE10 MG PO; +Lidocaine Patch TP; +MUCINEX DM ER1 EACH PO; +ZITHROMAX500 MG PO
[2018-12-26] MEDS ORDERED: KETOROLAC TROMETHAMINE 30 MG/ML VIAL IV STA (11:34)
[2018-12-26] MEDS ORDERED: SODIUM CHLORIDE 0.9% 1000ML 1,000 ML IV STA (11:34)
[2018-12-26] MEDS ORDERED: METOCLOPRAMIDE HCL 10 MG/2ML VIAL IV ONE (11:45)
[2018-12-26] MEDS ORDERED: ASPIRIN 81 MG CHEW TAB PO ONE (11:45)
[2018-12-26 12:33] LABS: BASOPHILS # (AUTO) 0.1 (0.0-0.1); BASOPHILS % 0.7 % (0.0-1.0); EOSINOPHILS % 0.2 % (0.0-6.0); HEMATOCRIT 42.4 % (34.2-44.1); HEMOGLOBIN 14.3 g/dL (12.0-16.0); LYMPHOCYTES # (AUTO) 1.6 (1.0-3.2); LYMPHOCYTES % 16.3 % (18.0-39.1); MEAN CORPUSCULAR HEMOGLOBIN 27.8 pg (28-32); MEAN CORPUSCULAR HGB CONC 33.7 g/dL (31-35); MEAN CORPUSCULAR VOLUME 82.3 fL (81-99); MONOCYTES # (AUTO) 0.4 (0.2-0.8); MONOCYTES % 3.9 % (4.4-11.3); NEUTROPHILS # (AUTO) 7.6 (2.1-6.9); NEUTROPHILS % 78.6 % (38.7-80.0); PLATELET COUNT 451 x10e3/uL (140-360); RED BLOOD COUNT 5.15 x10e6/uL (3.6-5.1); RED CELL DISTRIBUTION WIDTH 14.4 % (11.7-14.4)
[2018-12-26 12:38] LABS: INR 0.97; PROTHROMBIN TIME 13.4 seconds (11.9-14.5)
[2018-12-26 12:39] LABS: PARTIAL THROMBOPLASTIN TIME 32.8 seconds (23.8-35.5)
--- NOTE | 2018-12-26 12:41 | Diagnostic Imaging Report ---
EXAMINATION: PA and lateral views of the chest. COMPARISON: 10/20/2018 CLINICAL HISTORY: Headache DISCUSSION: The lungs are well-inflated and without focal airspace consolidation, pleural effusion, or pneumothorax. Tortuous thoracic aorta with otherwise normal cardiomediastinal contour. No overt pulmonary edema. Right apical calcified granuloma. Circular/ovoid radiopaque structure projects over the right clavicular shaft, which may be artifact external to the patient. No acute osseous abnormality. IMPRESSION: No acute cardiopulmonary abnormalities. Signed by: Dr. Alfred Lane M.D. on 12/26/2018 12:38 PM
[2018-12-26 12:48] LABS: ALBUMIN 4.4 g/dL (3.5-5.0); ANION GAP 12.3 mmol/L (8-16); CALCIUM 10.1 mg/dL (8.4-10.2); CREATININE, SERUM 0.94 mg/dL (0.57-1.11); MAGNESIUM 2.3 MG/DL (1.3-2.1); POTASSIUM 3.3 mmol/L (3.5-5.1)
[2018-12-26 12:53] LABS: CLARITY,URINE CLEAR (CLEAR); COLOR,URINE YELLOW (YELLOW)
[2018-12-26 12:57] LABS: LEUKOCYTE ESTERASE ,URINE NEGATIVE (NEGATIVE); NITRITE,URINE NEGATIVE (NEGATIVE); PROTEIN,URINE DIPSTICK TRACE (NEGATIVE)
[2018-12-26 12:58] LABS: BILIRUBIN,URINE NEGATIVE (NEGATIVE); KETONES,URINE 1+ (NEGATIVE); URINE UROBILINOGEN 0.2 mg/dL (0.2 - 1)
[2018-12-26 13:04] LABS: BACTERIA,URINE FEW /HPF; EPITHELIAL CELLS,URINE FEW /LPF; RBC,URINE 0-5 /HPF (0-5); WBC,URINE (MAN) 0-5 /HPF (0-5)
[2018-12-26 13:08] LABS: CREATINE KINASE MB 0.8 ng/mL (0-5.0); THYROID STIMULATING HORMONE 0.465 uIU/mL (0.350-4.940)
[2018-12-26] MEDS ORDERED: AMLODIPINE BESYL5 MG PO (14:11)
[2018-12-26] MEDS ORDERED: METFORMIN HCL500 MG PO (14:11)
[2018-12-26] MEDS ORDERED: HYDROCHLOROTH12.5 MG (14:11)
[2018-12-26] MEDS ORDERED: ACETAMIN/BUTALBITAL/CAFFEINE TAB PO ONE (15:15)
--- NOTE | 2018-12-26 15:36 | Diagnostic Imaging Report ---
History:Headache Comparison studies:CT head 04/03/2017 and 10/30/2017 Technique: Axial images were obtained from the skull base to the vertex. Coronal and sagittal images reconstructed from the axial data. Intravenous contrast: None Dose modulation, iterative reconstruction, and/or weight based adjustment of the mA/kV was utilized to reduce the radiation dose to as low as reasonably achievable. Findings: Scalp/skull: No abnormalities. Extra-axial spaces: No masses. No fluid collections. Brain sulci: Age-appropriate. Ventricles: Mild compensatory dilatation. No hydrocephalus. Parenchyma: Subtle hypodensities in the supratentorial white matter are small vessel ischemic changes. No masses, hemorrhage, acute or chronic cortical vascular insults. Sellar/suprasellar region: No abnormalities. Craniocervical junction: Patent foramen magnum. No Chiari one malformation. Incidental findings: Atherosclerotic calcifications in the carotid siphons . Bilateral cataract surgery changes Impression: No acute abnormalities. Chronic findings: 1. Stable mild ventriculomegaly 2. Mild supratentorial white matter small vessel ischemic changes. Signed by: DR Thanh Beal M.D. on 12/26/2018 3:32 PM
== END 2018-12-26 16:36 | disposition home or self-care (01) ==
LOC: ER 11:04
DX: R51 Headache (principal); I10 Essential (primary) hypertension; K21.9 Gastro-esophageal reflux disease without esophagitis; E78.5 Hyperlipidemia, unspecified; K29.70 Gastritis, unspecified, without bleeding; M19.90 Unspecified osteoarthritis, unspecified site; G89.4 Chronic pain syndrome; R00.1 Bradycardia, unspecified; R53.1 Weakness; R53.83 Other fatigue; R63.0 Anorexia
CPT/HCPCS: 36415; 70450; 71046; 80053; 81001; 82550; 82553; 83735; 83880; 84443; 84484; 85025; 85610; 85730; 87086; 87400; 93005; 99284; J1885; J2765; J7030

== ENCOUNTER 2019-10-19 12:12 | Emergency (ER) | payer MEDICARE, OTHER ==
[~2019-10-19] VITALS: Ht 167.6 cm; Wt 89.4 kg
[~2019-10-19 12:12] MED LIST changes: +AMLODIPINE BESYL5 MG PO; +CARVEDILOL12.5 MG PO; +HYDROCHLOROTH12.5 MG; +LOSARTAN POTAS100 MG PO; +METFORMIN HCL500 MG PO; +METOCLOPRAMIDE10 MG PO; +PRAVASTATIN SOD20 MG PO; +TIZANIDINE HCL4 M1 PO
[2019-10-19 12:27] VITALS: BP 103/81
== END 2019-10-19 12:33 | disposition home or self-care (01) ==
LOC: ER 12:12
DX: Z48.02 Encounter for removal of sutures (principal); Z96.652 Presence of left artificial knee joint
CPT/HCPCS: 99283